=== PATIENT | female | born 1960 | race African-American/Black ===

== ENCOUNTER 2017-11-04 21:39 | Emergency (ER) | payer BC ==
[2017-11-04] MEDS ORDERED: IBUPROFEN 600 MG TABLET PO ONE (23:55)
[2017-11-04] MEDS ORDERED: HYDROCODONE/ACETAMINOPHEN 5-325 MG (6 TAB/ER DISP) PO PRN (23:55)
--- NOTE | 2017-11-05 | ER Document Report ---
HPI - HPI Patient complains to provider of: Bilateral knee pain Onset: Last week Onset/Duration: Persistent Quality of pain: Achy Pain Level: 4 Context: Patient reports a history of chronic left knee pain. Patient states that because she has been changing the way she walks her right knee has started to hurt as well over the past week. Patient denies any new injuries to her knees. Patient does report a previous history of falling in which she fractured her distal femur. Patient states that after the fracture had healed she did have some complications and it was advised that she may need to have the injury refractured and a blaise placed. Patient does not elect to have this second procedure performed. Associated Symptoms: Other - Bilateral knee pain Exacerbated by: Standing, Movement, Walking Relieved by: Remaining still Similar symptoms previously: Yes Recently seen / treated by doctor: No - ROS ROS below otherwise negative: Yes Systems Reviewed and Negative: Yes All other systems reviewed and negative - CONSTITUTIONAL Constitutional: DENIES: Fever, Chills - CARDIOVASCULAR Cardiovascular: DENIES: Chest pain - RESPIRATORY Respiratory: DENIES: Trouble Breathing, Coughing - MUSCULOSKELETAL Musculoskeletal: REPORTS: Extremity pain - BLE chronic - DERM Skin Color: Normal Skin Problems: None Past Medical History - General Information source: Patient - Social History Smoking Status: Current Every Day Smoker Chew tobacco use (# tins/day): No Smoking Education Provided: Yes Frequency of alcohol use: Occasional Drug Abuse: Marijuana Occupation: [employer] Lives with: Family Family History: Reviewed & Not Pertinent Patient has suicidal ideation: No Patient has homicidal ideation: No - Past Medical History Cardiac Medical History: Denies: Hx Coronary Artery Disease, Hx Heart Attack, Hx Hypertension Pulmonary Medical History: Denies: Hx Asthma, Hx Bronchitis - YEARS AGO, NOT CHRONIC, Hx COPD, Hx Pneumonia Neurological Medical History: Denies: Hx Cerebrovascular Accident Renal/ Medical History: Denies: Hx Peritoneal Dialysis Musculoskeletal Medical History: Reports Hx Arthritis Infectious Medical History: Reports: Hx Hepatitis - UNSURE OF TYPE Past Surgical History: Reports: Hx Section - Immunizations Hx Diphtheria, Pertussis, Tetanus Vaccination: No - UNSURE Vertical Provider Document - CONSTITUTIONAL Agree With Documented VS: Yes Exam Limitations: No Limitations General Appearance: WD/WN, No Apparent Distress - INFECTION CONTROL TRAVEL OUTSIDE OF THE [place] IN LAST 30 DAYS: No - HEENT HEENT: Atraumatic, Normocephalic - NECK Neck: Normal Inspection, Supple - RESPIRATORY Respiratory: Breath Sounds Normal, No Respiratory Distress - CARDIOVASCULAR Cardiovascular: Regular Rate, Regular Rhythm Pulses: Normal: Dorsalis pedis - MUSCULOSKELETAL/EXTREMETIES Musculoskeletal/Extremeties: MAEW, Tender - Left knee joint tenderness, No Edema , Eccymosis - Patient with a burst superficial vein to the lateral aspect of left knee area. negative: Edema Notes: No laxity with varus or valgus maneuvers. Joint with normal skin temperature. No concern for septic arthritis - NEURO Level of Consciousness: Awake, Alert, Appropriate Motor/Sensory: No Motor Deficit - DERM Integumentary: Warm, Dry Course - Diagnostic Test Radiology reviewed: Reports reviewed - Reviewed the patient's radiology report from 2 years ago. Procedures - Immobilization Left Knee Pre-Proc Neuro Vasc Exam: Normal Immobilizer type: Rito wrap Performed by: PCT Post-Proc Neuro Vasc Exam: Normal Alignment checked and good: Yes Discharge - Discharge Clinical Impression: Arthritis Left knee pain Qualifiers: Chronicity: unspecified Qualified Code(s): M25.562 - Pain in left knee Condition: Stable Disposition: HOME, SELF-CARE Instructions: Rito Wrap ([facility]), Anti-Inflammatory Medication ([facility]), Arthritis ( [facility]), Use of Crutches ([facility]), Oral Narcotic Medication ([facility]) Additional Instructions: Return immediately for any new or worsening symptoms Followup with your primary care provider, call tomorrow to make a followup appointment Weightbearing as tolerated Follow-up with your orthopedic surgeon for recheck Prescriptions: Hydrocodone/Acetaminophen [[place] 5-325 Tablet] 1 each PO Q4 PRN #10 tablet PRN Reason: Naproxen [Naprosyn 250 Nmg Tablet] 1 tab PO BID #14 tablet Forms: Smoking Cessation Education, Return to Work Referrals: FADIA GONZALEZ MD [Primary Care Provider] - Follow up as needed [facility] [Provider Group] - Follow up tomorrow
[2017-11-05 00:27] VITALS: BP 136/78
== END 2017-11-05 00:27 | disposition home or self-care (01) ==
LOC: ER 21:39
DX: M17.12 Unilateral primary osteoarthritis, left knee (principal); M25.562 Pain in left knee; F17.200 Nicotine dependence, unspecified, uncomplicated
CPT/HCPCS: 99283

== ENCOUNTER 2019-09-20 16:43 | Emergency (ER) | payer BC ==
[2019-09-20 16:49] VITALS: BP 117/84
--- NOTE | 2019-09-20 17:24 | ER Document Report ---
HPI - HPI Patient complains to provider of: dental pain Time Seen by Provider: 09/20/19 17:21 Pain Level: 5 Context: 59-year-old female no previous medical problems presents to the emergency room complaining of right-sided facial swelling that started today. States she has a bad tooth. Did not take any medications for her symptoms. Denies fevers, denies any nausea vomiting. States painful to chew but is able to tolerate p.o. food and fluids without difficulty. Has a dentist she can follow-up with. Associated Symptoms: None Exacerbated by: Other - Chewing Relieved by: Denies Similar symptoms previously: No Recently seen / treated by doctor: No - ROS Systems Reviewed and Negative: Yes All other systems reviewed and negative - CONSTITUTIONAL Constitutional: DENIES: Fever - EENT EENT: DENIES: Sore Throat - NEURO Neurology: DENIES: Weakness Notes: Dental pain, right-sided facial swelling - RESPIRATORY Respiratory: DENIES: Trouble Breathing - REPRODUCTIVE Reproductive: DENIES: : - DERM Skin Color: Normal Skin Problems: None Past Medical History - General Information source: Patient - Social History Smoking Status: Current Every Day Smoker Chew tobacco use (# tins/day): No Frequency of alcohol use: Occasional Drug Abuse: None Family History: Reviewed & Not Pertinent Patient has homicidal ideation: No - Past Medical History Cardiac Medical History: Denies: Hx Coronary Artery Disease, Hx Heart Attack, Hx Hypertension Pulmonary Medical History: Denies: Hx Asthma, Hx Bronchitis - YEARS AGO, NOT CHRONIC, Hx COPD, Hx Pneumonia Neurological Medical History: Denies: Hx Cerebrovascular Accident Renal/ Medical History: Denies: Hx Peritoneal Dialysis GI Medical History: Reports: Hx Hepatitis - UNSURE OF TYPE Musculoskeletal Medical History: Reports Hx Arthritis Infectious Medical History: Reports: Hx Hepatitis - UNSURE OF TYPE Past Surgical History: Reports: Hx Section - Immunizations Hx Diphtheria, Pertussis, Tetanus Vaccination: No - UNSURE Vertical Provider Document - CONSTITUTIONAL Agree With Documented VS: Yes General Appearance: Mild Distress - INFECTION CONTROL TRAVEL OUTSIDE OF THE [place] IN LAST 30 DAYS: No - HEENT HEENT: Atraumatic, Normocephalic. negative: Pharyngeal Exudate, Pharyngeal Tenderness, Pharyngeal Erythema, Tympanic Membrane Red, Tympanic Membrane Bulging Mouth Diagram: 1 - Nonfluctuant abscess Notes: Patient with widespread dental decay and multiple missing tooth. There is a nonfluctuant abscess that is palpated at tooth 11. Erythema and swelling to gum around tooth. - NECK Neck: Normal Inspection, Supple. negative: Thyroid Normal, Lymphadenopathy- Left, Lymphadenopathy-Right - RESPIRATORY Respiratory: Breath Sounds Normal, No Respiratory Distress, Chest Non-Tender. negative: Rales, Rhonchi, Wheezing - CARDIOVASCULAR Cardiovascular: Regular Rate, Regular Rhythm, No Murmur - MUSCULOSKELETAL/EXTREMETIES Musculoskeletal/Extremeties: FROM, Non-Tender - NEURO Level of Consciousness: Awake, Alert Motor/Sensory: No Motor Deficit, No Sensory Deficit - DERM Integumentary: Warm, Dry, No Rash Course - Vital Signs Vital signs: Temp Pulse Resp BP Pulse Ox 98.6 F 68 14 117/84 96 09/20/19 17:17 09/20/19 16:48 09/20/19 16:48 09/20/19 16:48 09/20/19 16:48 Discharge - Discharge Clinical Impression: Pain, dental, Dental abscess Condition: Stable Disposition: HOME, SELF-CARE Instructions: Abscess ([facility]), Penicillin V K ([facility]), Toothache ([facility]) Additional Instructions: You have been seen for dental pain. It is very important that you follow-up with a dentist for definitive care. Please return if you develop fever greater than 101, swelling in your face, vomiting, difficulty breathing or swallowing, or any other symptoms that are concerning to you. For pain you should take naproxen as prescribed. Take antibiotics as prescribed. Prescriptions: Naproxen 500 mg PO BID PRN #14 tablet PRN Reason: Penicillin V Potassium [Penicillin Vk 500 mg Tablet] 500 mg PO QID #40 tablet Referrals: FADIA GONZALEZ MD [ACTIVE STAFF] - Follow up as needed
== END 2019-09-20 17:27 | disposition home or self-care (01) ==
LOC: ER 16:43
DX: K04.7 Periapical abscess without sinus (principal); K02.9 Dental caries, unspecified; K08.89 Other specified disorders of teeth and supporting structures; F17.200 Nicotine dependence, unspecified, uncomplicated
CPT/HCPCS: 99282